=== PATIENT | female | born 1965 | race Caucasian/White ===

== ENCOUNTER 2020-01-23 01:53 | Emergency (ER) | payer MEDICAID ==
[~2020-01-23] VITALS: Ht 149.9 cm; Wt 59.0 kg
[2020-01-23 01:55] VITALS: Ht 149.9 cm; Wt 59.0 kg
[2020-01-23 03:08] LABS: CALCIUM 8.7 mg/dL (8.5-10.1); CARBON DIOXIDE 25.5 mmol/L (21-32); CHLORIDE SERUM 103 mmol/L (98-107); CREATININE SERUM 0.8 mg/dL (0.6-1.0); GFR1 > 60 mL/min; GLUCOSE SERUM 124 mg/dL (74-106); POTASSIUM SERUM 3.8 mmol/L (3.5-5.1); SODIUM SERUM 135 mmol/L (136-145)
[2020-01-23 03:12] LABS: BASOPHIL % 1.3 % (0-2)
[2020-01-23 03:15] LABS: PLATELET COUNT 140 x10^3mcL (130-400); RED CELL DISTRIBUTION WIDTH 14.6 % (11.5-14.5)
[2020-01-23 03:16] LABS: ALBUMIN 3.3 g/dL (3.4-5.0); ALKALINE PHOSPHATASE 104 U/L (46-116); ALT/SGPT 79 U/L (14-59); AST/SGOT 71 U/L (15-37); BILIRUBIN TOTAL 0.34 mg/dL (0.20-1.00); TOTAL PROTEIN, SERUM 7.6 g/dL (6.4-8.2)
[2020-01-23 05:28] VITALS: BP 101/53
== END 2020-01-23 05:21 | disposition home or self-care (01) ==
LOC: ED 01:53
PROVIDERS: Student in an Organized Health Care Education/Training Program
DX: F41.1 Generalized anxiety disorder (principal); E11.9 Type 2 diabetes mellitus without complications; E78.5 Hyperlipidemia, unspecified
CPT/HCPCS: 82962; 83880; J2405; J7030; Q0092